=== PATIENT | male | born 1990 | race Caucasian/White ===

== ENCOUNTER 2017-06-27 22:28 | Emergency (ER) | payer OTHER ==
[~2017-06-27] VITALS: Ht 177.8 cm; Wt 95.0 kg
[2017-06-27 22:30] VITALS: BP 163/90; PULSE 105; RESP 18; TEMP 98.7; O2SAT 98
[2017-06-27] MEDS ORDERED: TETANUS/DIPHTHERIA TOXOID ADULT 0.5 ML VIAL IM ONE (23:15)
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
--- NOTE | 2017-06-27 23:57 | RADRPT ---
EXAM DATE/TIME: 06/27/2017 23:28 [facility] COMPARISON: No previous studies available for comparison. INDICATIONS : Numbness to right ankle. MEDICAL HISTORY : None. SURGICAL HISTORY : None. ENCOUNTER: Initial ACUITY: 1 day PAIN SCORE: 0/10 LOCATION: Right ankle FINDINGS: No definite fractures, or dislocations are identified. No definite lytic or sclerotic lesion is seen . The joint spaces are well maintained. CONCLUSION: Unremarkable study. Latosha Buckner MD on June 27, 2017 at 23:55 Board Certified Radiologist. This report was verified electronically.
== END 2017-06-28 00:57 | disposition home or self-care (01) ==
LOC: NEPD 22:28
DX: S80.01XA Contusion of right knee, initial encounter (principal); S93.401A Sprain of unspecified ligament of right ankle, initial encounter; S00.03XA Contusion of scalp, initial encounter; S50.812A Abrasion of left forearm, initial encounter; F17.200 Nicotine dependence, unspecified, uncomplicated; Z23 Encounter for immunization; Z87.19 Personal history of other diseases of the digestive system; V89.2XXA Person injured in unspecified motor-vehicle accident, traffic, initial encounter
CPT/HCPCS: 73560; 73610; 90471; 90714